=== PATIENT | female | born 1965 | race Caucasian/White ===

== ENCOUNTER 2019-09-21 06:04 | Inpatient (IN) | payer BC ==
[~2019-09-21] VITALS: Ht 160 cm; Wt 74.7 kg
[~2019-09-21 06:04] MED LIST: ASPI-496 PO; CETI10TA24 PO; CHOL5000 PO; CLOB15CR19 TP; CYCL-259 PO; LORA-445 PO; LOSA1TAB19 PO; MAGN500C9 PO; MELO15TA24 PO; METO25TA91 PO; MONT10TA6 PO; MUPI15CR9 TP; OMEG1CAP23 PO; ONDA4TAB7 PO; POTA99TA8 PO; PSEU60TA PO; SERT100T32 PO; SPIR25TA5 PO; VALA1000 PO; VITA1CAP PO; ZINC50TA44 PO
[2019-09-21] MEDS ORDERED: NS + 20MEQ KCL 1,000 ML IV SCH (06:29)
[2019-09-21] MEDS ORDERED: ACETAMINOPHEN 650 MG/20.3 ML UDC PO PRN (06:30)
[2019-09-21] MEDS ORDERED: MAGNESIUM HYDROXIDE 8%, 30ML UDC PO PRN (06:30)
[2019-09-21] MEDS ORDERED: ZOLPIDEM 5MG TABLET PO PRN (06:30)
[2019-09-21] MEDS ORDERED: OXYcodone IR 5MG TABLET PO PRN (06:30)
[2019-09-21] MEDS ORDERED: LORazepam 0.5MG TABLET PO PRN (06:30)
[2019-09-21] MEDS ORDERED: HYDROcodone/APAP 5/325 TABLET PO PRN (06:30)
[2019-09-21] MEDS ORDERED: SCOPOLAMINE PATCH, 1.5MG PATCH.TD72 TD ONE ×2 (06:30→07:30)
[2019-09-21] MEDS ORDERED: ONDANSETRON 4 MG TABLET PO PRN (06:30)
[2019-09-21] MEDS ORDERED: SENNA/DOCUSATE TABLET PO PRN (06:30)
[2019-09-21] MEDS ORDERED: BISACODYL 10 MG SUPP PR PRN (06:30)
[2019-09-21] MEDS ORDERED: DIPHENHYDRAMINE 50 MG CAPSULE PO PRN (06:30)
[2019-09-21] MEDS ORDERED: ONDANSETRON 2MG/ML, 2ML IV PRN (06:30)
[2019-09-21] MEDS ORDERED: KETOROLAC 60 MG/2 ML ONE (06:56)
[2019-09-21] MEDS ORDERED: TRANEXAMIC ACID 100 MG/ML, 10ML ONE ×2 (06:56)
[2019-09-21] MEDS ORDERED: SODIUM CHLORIDE 0.9% 50 ML ONE (06:57)
[2019-09-21] MEDS ORDERED: VANCOMYCIN 1,000 MG ONE (06:57)
[2019-09-21] MEDS ORDERED: EPINEPHRINE 1 MG/ML, 1ML ONE (06:57)
[2019-09-21] MEDS ORDERED: ROPIvacaine/PF 0.5%, 30 ML ONE (06:57)
[2019-09-21] MEDS ORDERED: GABAPENTIN 300 MG CAPSULE PO ONE (07:00)
[2019-09-21] MEDS ORDERED: ACETAMINOPHEN 500 MG TABLET PO ONE (07:00)
[2019-09-21] MEDS ORDERED: LACTATED RINGERS 1,000 ML IV SCH (07:07)
[2019-09-21] MEDS ORDERED: ACETAMINOPHEN 500 MG TABLET ONE (07:11)
[2019-09-21] MEDS ORDERED: GABAPENTIN 300 MG CAPSULE ONE (07:12)
[2019-09-21] MEDS ORDERED: FENTANYL PF 250 MCG/5ML ONE (07:40)
[2019-09-21] MEDS ORDERED: MIDAZOLAM 1 MG/ML, 2ML ONE (07:40)
[2019-09-21] MEDS ORDERED: PROPOFOL 50 ML ONE (07:40)
[2019-09-21] MEDS ORDERED: METOCLOPRAMIDE 5 MG/ML, 2ML ONE (08:30)
[2019-09-21] MEDS ORDERED: DEXAMETHASONE 4 MG/ML, 1ML ONE (08:55)
[2019-09-21] MEDS ORDERED: GLYCOPYRROLATE 0.2MG/1ML, 5ML ONE (08:55)
[2019-09-21] MEDS ORDERED: NEOSTIGMINE 1 MG/ML, 10ML ONE (08:55)
[2019-09-21] MEDS ORDERED: ROCURONIUM 10MG/ML,5ML ONE (08:55)
[2019-09-21] MEDS ORDERED: PROPOFOL 10 MG/ML, 20ML ONE (08:55)
[2019-09-21] MEDS ORDERED: CEFAZOLIN 1,000 MG ONE (08:55)
[2019-09-21] MEDS ORDERED: ONDANSETRON 2MG/ML, 2ML ONE (08:55)
[2019-09-21] MEDS ORDERED: METOPROLOL SUCCINATE 25 MG TAB.ER.24H PO SCH (09:00)
[2019-09-21] MEDS ORDERED: SPIRONOLACTONE 25 MG TABLET PO SCH (09:00)
[2019-09-21] MEDS ORDERED: POTASSIUM 99 MG PO SCH (09:00)
[2019-09-21] MEDS ORDERED: DOCUSATE 100 MG CAPSULE PO SCH (09:00)
[2019-09-21] MEDS ORDERED: CETIRIZINE 10 MG TABLET PO SCH (09:00)
[2019-09-21] MEDS ORDERED: MONTELUKAST 10 MG TABLET PO SCH (09:00)
[2019-09-21] MEDS ORDERED: FENTANYL PF 100 MCG/2ML ONE (09:54)
[2019-09-21 12:05] VITALS: BP 110/76
[2019-09-21] MEDS ORDERED: OXYC5TAB2 PO (16:01)
[2019-09-21] MEDS ORDERED: TRAM50TA2 PO (16:02)
[2019-09-21] MEDS ORDERED: CEFAZOLIN PMX 2GM/50ML 50 ML IVPB SCH (16:30)
[2019-09-21 16:50] VITALS: BP 128/80
[2019-09-21] MEDS ORDERED: MUPIROCIN OINT 2%, 22GM TP PRN (18:00)
[2019-09-21] MEDS ORDERED: ASPIRIN 81 MG TABLET EC PO SCH (18:00)
[2019-09-21] MEDS ORDERED: CYCLOBENZAPRINE 10 MG TABLET PO SCH (21:00)
[2019-09-21] MEDS ORDERED: SERTRALINE 100MG TABLET PO SCH (21:00)
[2019-09-22] MEDS ORDERED: DEXAMETHASONE 4 MG/ML, 1ML IVPush SCH (06:00)
[2019-09-22] MEDS ORDERED: LOSARTAN 50MG TABLET PO SCH (09:00)
[2019-09-22] MEDS ORDERED: HYDROCHLOROTHIAZIDE 12.5 MG CAPSULE PO SCH (09:00)
== END 2019-09-21 18:10 | disposition home or self-care (01) | DRG 470 ==
LOC: ORIP 06:04 → 4NE 12:04
PROVIDERS: ADMIT Orthopaedic Surgery; ATTEND Orthopaedic Surgery
PROC: 0SRB06A Replacement of Left Hip Joint with Oxidized Zirconium on Polyethylene Synthetic Substitute, Uncemented, Open Approach (ICD-10-PCS; principal; 2019-09-21 08:15)
DX: M16.12 Unilateral primary osteoarthritis, left hip (principal); I10 Essential (primary) hypertension; E11.9 Type 2 diabetes mellitus without complications; F41.1 Generalized anxiety disorder; F32.9 Major depressive disorder, single episode, unspecified; K21.9 Gastro-esophageal reflux disease without esophagitis; M81.0 Age-related osteoporosis without current pathological fracture
CPT/HCPCS: 36415; 72170; 76000; 86850; 86900; C1713; G0378; J0171; J0690; J1100; J1885; J2250; J2405; J2704; J2710; J2795; J3010; J3370; J3480; C1776; J2765; J7120